=== PATIENT | male | born 1985 | race Caucasian/White ===

== ENCOUNTER 2021-05-31 07:35 | Emergency (ER) | payer OTHER ==
[~2021-05-31] VITALS: Ht 177.8 cm; Wt 79.1 kg
[2021-05-31] MEDS ORDERED: IV NORMAL SALINE 1000ML BAG 1,000 ML IV SCH (08:00)
--- NOTE | 2021-05-31 08:04 | PHYS DOC ---
Past Medical History Past Medical History: No Pertinent History Past Surgical History: Other Additional Past Surgical Histo: bilat inguinal hernias Smoking Status: Never Smoker Alcohol Use: Occasionally Additional Information: BEER Drug Use: None General Adult EDM: Chief Complaint: BACK PAIN - NO INJURY HPI: HPI: Patient is a 35 year old male comes in with right-sided flank pain that woke him up in the morning. Patient reports nausea. Patient denies any dysuria hematuria urinary hesitancy or frequency. Denies any fevers or chills. Patient states he has not had pain like this in the past. Patient has no significant medical history patient denies smoking. Review of Systems: Review of Systems: Constitutional: Denies fever or chills. Eyes: Denies change in visual acuity. HENT: Denies nasal congestion or sore throat. Respiratory: Denies cough or shortness of breath. Cardiovascular: Denies chest pain or edema. GI: Denies abdominal pain, nausea, vomiting, bloody stools or diarrhea. : Right flank pain denies dysuria. Musculoskeletal: Denies back pain or joint pain. Integument: Denies rash. Neurologic: Denies headache, focal weakness or sensory changes. Endocrine: Denies polyuria or polydipsia. Lymphatic: Denies swollen glands. Psychiatric: Denies depression or anxiety. Heart Score: C/O Chest Pain: No Risk Factors: Risk Factors: DM, Current or recent (<one month) smoker, HTN, HLP, family history of CAD, obesity. Risk Scores: Score 0 - 3: 2.5% MACE over next 6 weeks - Discharge Home Score 4 - 6: 20.3% MACE over next 6 weeks - Admit for Clinical Observation Score 7 - 10: 72.7% MACE over next 6 weeks - Early Invasive Strategies Allergies: Allergies: Allergies Coded Allergies Type Severity Reaction Last Updated Verified No Known Drug Allergies 06/25/15 No Physical Exam: PE: Constitutional: Patient appears to be in pain well developed, well nourished, no acute distress, non-toxic appearance. HENT: Normocephalic, atraumatic, bilateral external ears normal, oropharynx moist, no oral exudates, nose normal. Eyes: PERRLA, EOMI, conjunctiva normal, no discharge. Neck: Normal range of motion, no tenderness, supple, no stridor. Cardiovascular:Heart rate regular rhythm, no murmur Lungs & Thorax: Bilateral breath sounds clear to auscultation Abdomen: Bowel sounds normal, soft, no tenderness, no masses, no pulsatile masses. Skin: Patient is cool and clammy, no erythema, no rash. Back: No midline tenderness, right-sided CVA tenderness Extremities: No tenderness, no cyanosis, no clubbing, ROM intact, no edema. Neurologic: Alert and oriented X 3, normal motor function, normal sensory function, no focal deficits noted. Psychologic: Affect normal, judgement normal, mood normal. Current Patient Data: Labs: Laboratory Tests Test 05/31/21 08:15 White Blood Count 4.2 x10^3/uL Red Blood Count 4.90 x10^6/uL Hemoglobin 15.1 g/dL Hematocrit 45.4 % Mean Corpuscular Volume 93 fL Mean Corpuscular Hemoglobin 31 pg Mean Corpuscular Hemoglobin Concent 33 g/dL Red Cell Distribution Width 12.9 % Platelet Count 117 x10^3/uL Neutrophils (%) (Auto) 63 % Lymphocytes (%) (Auto) 26 % Monocytes (%) (Auto) 9 % Eosinophils (%) (Auto) 2 % Basophils (%) (Auto) 0 % Neutrophils # (Auto) 2.6 x10^3/uL Lymphocytes # (Auto) 1.1 x10^3/uL Monocytes # (Auto) 0.4 x10^3/uL Eosinophils # (Auto) 0.1 x10^3/uL Basophils # (Auto) 0.0 x10^3/uL Sodium Level 140 mmol/L Potassium Level 3.7 mmol/L Chloride Level 103 mmol/L Carbon Dioxide Level 30 mmol/L Anion Gap 7 Blood Urea Nitrogen 19 mg/dL Creatinine 1.0 mg/dL Estimated GFR (Cockcroft-Gault) 85.0 BUN/Creatinine Ratio 19 Glucose Level 130 mg/dL Calcium Level 8.9 mg/dL Total Bilirubin 1.0 mg/dL Aspartate Amino Transf (AST/SGOT) 17 U/L Alanine Aminotransferase (ALT/SGPT) 20 U/L Alkaline Phosphatase 51 U/L Total Protein 7.1 g/dL Albumin 4.5 g/dL Albumin/Globulin Ratio 1.7 Current Medications Medications (Trade) Dose Ordered Sig/Ness Route PRN Reason Start Time Stop Time Status Last Admin Dose Admin Sodium Chloride 1,000 ml @ 1,000 mls/hr Q1H IV 05/31/21 08:00 05/31/21 08:59 DC 05/31/21 08:24 Ketorolac Tromethamine (Toradol 30mg Vial) 15 mg 1X ONCE IVP 05/31/21 08:30 05/31/21 08:31 DC 05/31/21 08:25 Ondansetron HCl (Zofran) 4 mg 1X ONCE IVP 05/31/21 08:30 05/31/21 08:31 DC 05/31/21 08:25 Vital Signs: Vital Signs Date Time Temp Pulse Resp B/P (MAP) Pulse Ox O2 Delivery O2 Flow Rate FiO2 05/31/21 07:36 98.3 52 17 145/85 (105) 100 Room Air 98.3 EKG: EKG: [] Radiology/Procedures: Radiology/Procedures: ]MPRESSION: 2 mm right UVJ calculus resulting in mild right hydroureteronephrosis. Electronically signed by: Rubio Coles MD (05/31/2021 8:57 AM) [facility] Course & Med Decision Making: Course & Med Decision Making Pertinent Labs and Imaging studies reviewed. (See chart for details) Lab and CT findings were discussed with the patient. Patient given strict return precaution patient was reassessed after pain medication were given patient states that he feels better. Patient will follow up with urology in the outpatient setting Dana Disclaimer: Dana Disclaimer: This electronic medical record was generated, in whole or in part, using a voice recognition dictation system. Departure Departure Referrals: NO PCP (PCP) PELON RICH DO May 31, 2021 08:04
[2021-05-31] MEDS ORDERED: KETOROLAC 30 MG/ML VIAL. IVP ONE (08:30)
[2021-05-31] MEDS ORDERED: ONDANSETRON PF 4 MG/2 ML VIAL. IVP ONE (08:30)
[2021-05-31 08:31] LABS: BASO % 0 % (0-3); EOS # 0.1 x10^3/uL (0.0-0.7); EOS % 2 % (0-3); HEMATOCRIT 45.4 % (39.0-53.0); HEMOGLOBIN 15.1 g/dL (13.0-17.5); LYMPH # 1.1 x10^3/uL (1.0-4.8); LYMPH % 26 % (24-48); MEAN CORPUSCULAR HEMOGLOBIN 31 pg (25-35); MEAN CORPUSCULAR HGB CONC 33 g/dL (31-37); MEAN CORPUSCULAR VOLUME 93 fL (79-100); MONO # 0.4 x10^3/uL (0.0-1.1); MONO % 9 % (0-9); NEUT # 2.6 x10^3/uL (1.8-7.7); NEUT % 63 % (31-73); PLATELET COUNT 117 x10^3/uL (140-400); RED CELL DISTRIBUTION WIDTH 12.9 % (11.5-14.5); WHITE BLOOD COUNT 4.2 x10^3/uL (4.0-11.0)
[2021-05-31 08:37] LABS: CALCIUM 8.9 mg/dL (8.5-10.1); POTASSIUM 3.7 mmol/L (3.5-5.1)
[2021-05-31 08:44] LABS: ALBUMIN 4.5 g/dL (3.4-5.0); ALBUMIN/GLOBULIN RATIO 1.7 (1.0-1.7); TOTAL PROTEIN 7.1 g/dL (6.4-8.2)
--- NOTE | 2021-05-31 09:00 | RAD ---
Exam Date: 05/31/2021 8:[address] ABDOMEN+PELVIS WO Indication: Reason: Right flank pain started this AM / Spl. Instructions: / History: . TECHNIQUE: CT examination of the abdomen and pelvis was performed without oral or intravenous contra st. One or more of the following dose reduction techniques were utilized: *Automated exposure control (AEC) *Adjustment of mA and/or kV according to patient size *Use of iterative reconstruction technique *CT scan done according to ALARA, or ALARA/IMAGE GENTLY FINDINGS: The visualized lung bases are clear. The liver, gallbladder, spleen, pancreas, and adrenal glands are normal. There is a 2 mm calculus at the right ureterovesicular junction resulting in mild right hydroureteron ephrosis. The kidneys are otherwise normal bilaterally. No left hydronephrosis or hydroureter is seen. No lef t urinary tract calculi are seen. Urinary bladder is normal in appearance. There is no bowel obstruction or inflammation. The appendix is normal. No significant atherosclerotic calcifications are seen. No lymphadenopathy or ascites is seen. Osseous structures are intact. IMPRESSION: 2 mm right UVJ calculus resulting in mild right hydroureteronephrosis. Electronically signed by: Rubio Coles MD (05/31/2021 8:57 AM) [facility]
[2021-05-31] MEDS ORDERED: OXYC1TAB15 PO ×2 (09:23→09:53)
[2021-05-31] MEDS ORDERED: oxyCODONE/APAP 5/325 1 TAB TABLET PO ONE (09:45)
[2021-05-31] MEDS ORDERED: IBUP-1007 PO (09:55)
[2021-05-31 10:08] VITALS: BP 130/85
[2021-05-31] MEDS ORDERED: MORPHINE SULFATE 4 MG/ML INJ. IV PRN (10:15)
[2021-05-31] MEDS ORDERED: ONDA4TAB12 PO (10:23)
== END 2021-05-31 10:31 | disposition home or self-care (01) ==
LOC: ER 07:35
DX: N13.2 Hydronephrosis with renal and ureteral calculous obstruction (principal)
CPT/HCPCS: 36415; 74176; 80053; 85025; 96361; 96374; 96375; 99285; J1885; J2270; J2405; J7030